=== PATIENT | female | born 1965 | race Caucasian/White ===

== ENCOUNTER → 2020-02-24 | Outpatient (CLI) | payer OTHER ==
[~2020-02-24] MED LIST: AMBIEN 10 MG TA10 MG PO; AMBIEN 5 MG TABL5 M1 PO; BACTROBAN CREAM30 GM TOP; BUPROPION XL150 MG PO; CORTIZONE-1028 GM; CYMBALTA60 MG; CYMBALTA60 MG PO; EUTHYROX100 MCG PO; FAMOTIDINE40 MG PO; GRALISE600 MG PO; IBUPROFEN 800800 M1 PO; KEFLEX500 MG PO; LUMIGAN2.5 M1 OP; MELADOX3 MG PO; NEURONTIN600 MG; NORCO 5-325 TA1 EACH PO; OMEPRAZOLE40 MG PO; ONDANSETRON HCL4 M2 PO; OXCARBAZEPINE300 MG PO; PERCOCET 5-3251 EACH PO; PREDNISONE 20 M20 MG PO; PROPRANOLOL 1010 M1 PO; PROTONIX 20 MG20 M1; PROTONIX40 M2 PO; PROZAC20 MG PO; SEROQUEL XR150 MG PO; SYNTHROID75 MCG PO; TOPIRAGEN25 MG PO; VISTARIL 25 MG25 M1; VITAMIN D1000 UNI1 PO; [UNRECOGNIZED DRUG - OTHER]
== END ==
LOC: M.LAB 11:23
PROVIDERS: ATTEND Surgery
DX: Z01.812 Encounter for preprocedural laboratory examination (principal); Z20.828 Contact with and (suspected) exposure to other viral communicable diseases

== ENCOUNTER → 2020-03-01 | Day surgery (SDC) | payer OTHER ==
[~2020-03-01] MED LIST changes: +OXYCODONE HCL 55 MG PO
--- NOTE | 2020-03-01 18:50 | OP ---
[address] [address] OPERATIVE REPORT Name: CHRISTINE DRUMMOND Room: [facility]#: [id number] Admission: 03/01/20 Attend Phys: Marielle Campo DO Discharge: Date of : 67 Report #: [id number] THIS REPORT FOR: cc: Hailey Lopez RN, Janene RN FNP ~ Marielle Campo DO DATE OF SERVICE: 03/01/2020 PREOPERATIVE DIAGNOSIS: Cholelithiasis. POSTOPERATIVE DIAGNOSIS: Cholelithiasis. FINDINGS: Large stone in the neck of the gallbladder. The liver appeared to be very friable. SURGEON: Marielle Campo DO COSURGEON: Olaf Al, PGY-1. CLERK CASHIER: ALEJANDRO Lynn. PROCEDURE PERFORMED: Laparoscopic cholecystectomy. ANESTHESIA:. General endotracheal with local and TAP's block. ESTIMATED BLOOD LOSS: 10 mL. DRAINS: None. SPECIMENS: Gallbladder. COMPLICATIONS: None. CONDITION: Stable. DISPOSITION: PACU to home. HISTORY OF PRESENT ILLNESS: The patient is a very pleasant 54-year-old female who presented to my office with complaint of intermittent bouts of right upper quadrant abdominal pain associated with nausea. On ultrasound, she was found to have a very large stone in the gallbladder. She was then consented for laparoscopic cholecystectomy. Risks discussed included bleeding, infection, pain, scar formation, injury to bowel, liver or bile duct, hernia at the incision sites, need for an open procedure and risks of general anesthesia. The patient understood these risks and [place] [address] OPERATIVE REPORT Name: CHRISTINE DRUMMOND Room: [facility]#: [id number] Admission: 03/01/20 Attend Phys: Marielle Campo DO Discharge: Date of : 67 Report #: [id number] DESCRIPTION OF PROCEDURE: The patient was brought to the operating room. She was laid supine on the operating room table. SCDs were placed to bilateral lower extremities. Ancef was given in the perioperative period. General endotracheal anesthesia was induced by Anesthesia without difficulty. TAP's blocks were then also provided by Anesthesia without issue. Abdomen was prepped and draped in standard sterile fashion. Timeout was performed to verify patient and procedure. A 10 mL of 0.5% Marcaine were injected in the infraumbilical area. Curvilinear incision was made with 11 blade. Cautery was used for hemostasis. S retractors were used to visualize the fascia. Fascia was grasped and elevated between 2 Kochers. Fascia was incised using cautery. Peritoneum was bluntly entered using a Lin clamp. Finger was introduced into the abdomen to assure that there were no jen-incisional adhesions, none were identified. Two stitches of 0 Vicryl placed on the fascia. Susy trocar was introduced and secured with 0 Vicryl stitches. Abdomen was insufflated. The patient was placed head up and tilted left side down. Camera was introduced and a brief anterior abdominal exploration was undertaken with no significant findings. Three 5 mm trocars were introduced, one in the subxiphoid area and two in the right upper quadrant, all under direct visualization. Gallbladder was grasped and elevated. There were few filmy adhesions between the omentum and the gallbladder. These were easily taken down with cautery. Peritoneum overlying the triangle of Calot was then incised using cautery. The fatty tissues were removed until the duct and artery were both easily identified. Both were circumferentially dissected free using a [place] dissector and tissues, posterior to the artery were removed to the liver plate. This then afforded the critical view. Duct and artery were both doubly clipped and ligated. Gallbladder was then removed from the liver bed utilizing cautery with some difficulty as the liver bed was very friable and tore quite easily. Gallbladder was placed within an EndoCatch bag. Liver bed was inspected. There were several areas of bleeding, which were easily controlled with cautery. Our Clips were inspected. They appeared to be intact. There was no bleeding or leakage noted from the area of the clips. Trocars were then removed under direct visualization. There was no bleeding noted from the peritoneum. Abdomen was completely desufflated. Susy trocar was removed and EndoCatch bag was removed after extending the fascial incision due to a very large stone in the gallbladder. Specimen was then handed off for permanent pathology. Kochers were placed on the fascia of the infraumbilical port. Previously placed 0 Vicryl stitches were removed and a 0 Vicryl stitch was placed in [id number]-wm-[id number] fashion with excellent approximation of the fascia. An additional 10 mL of 0.5% Marcaine were injected in the fascia. This wound was closed in a layered fashion using deep and superficial stitches of 3-0 Vicryl in inverted interrupted fashion. Skin wounds were all closed with 4-0 Monocryl. A total of 30 mL of 0.5% Marcaine were used to anesthetize the wounds. Wounds were then cleansed and covered with Dermabond. The patient was then allowed [place] [address] OPERATIVE REPORT Name: CHRISTINE DRUMMOND Room: [facility]#: [id number] Admission: 03/01/20 Attend Phys: Marielle Campo DO Discharge: Date of : 67 Report #: [id number] from anesthesia, was extubated and transported to the recovery room with no further difficulties. Counts were correct x 2 at the conclusion of the case. <ELECTRONICALLY SIGNED> By: Marielle Campo DO 03/01/20 1850 1641 1814Civory Campo DO /nt
--- NOTE | 2020-03-07 18:06 | PATH ---
[address] [address] PATHOLOGY RPT PROCEDURE Name: CHRISTINE MADDEN Room: [facility]#: [id number] Admission: 03/01/20 Date of : 67 Discharge: Report #: [id number] Path Case #: [id number] [facility] Accession Number: [id number] . 01 Material submitted: . gallbladder - GALLBLADDER WITH CONTENTS . 01 Clinical history: . GALLBLADDER WITH GALLSTONES CALCULUS OF GALL BLADDER W/O CHOLECYSTITIS W/O OBSTRUCTION . 02 Diagnosis: Gallbladder with contents: - Chronic cholecystitis and cholelithiasis with scant attached benign liver tissue. (SARAH/db; 03/07/2020) LBQ 03/07/2020 1534 Local . 02 Electronically signed: . Cody Romero MD, Pathologist NPI- [id number] . 01 Gross description: . Received in formalin labeled "Christine Madden, gallbladder with contents" is an intact cholecystectomy specimen measuring 7.8 x 3.6 x 3.2 cm. The serosa is peoples-green and smooth and the specimen is opened to reveal dark green velvety mucosa without polyps or masses. The average wall thickness is 0.1 cm. Within the gallbladder is an ovoid green-black calculus measuring 2.6 cm in greatest dimension. Web Marketing Coordinator sections of the fundus and body and the cystic duct margin are submitted in A1. ([facility]; 03/03/2020) [facility] 03/03/2020 1302 Local . 02 Pathologist provided ICD-10: K80.10 . 02 CPT . 876948 Specimen Comment: A courtesy copy of this report has been sent to [phone] Specimen Comment: Report sent to Performed at: [address], [place], [place] [id number] MD Nikunj Dempsey MD Phone: [phone] Performed at: 02 [facility] [address], [place], [place] [id number] MD Cody Romero MD Phone: [phone]
== END | disposition home or self-care (01) ==
LOC: M.SUR
PROVIDERS: ATTEND Surgery
DX: K80.10 Calculus of gallbladder with chronic cholecystitis without obstruction (principal); K76.89 Other specified diseases of liver; R10.9 Unspecified abdominal pain; K21.9 Gastro-esophageal reflux disease without esophagitis; F32.9 Major depressive disorder, single episode, unspecified; F41.9 Anxiety disorder, unspecified; H40.9 Unspecified glaucoma; Z98.890 Other specified postprocedural states; Z79.899 Other long term (current) drug therapy; Z85.850 Personal history of malignant neoplasm of thyroid

== ENCOUNTER → 2020-08-22 | Outpatient (CLI) | payer OTHER | LOC: M.RAD 14:27 | PROVIDERS: ATTEND Family Medicine | DX: Z12.31 Encounter for screening mammogram for malignant neoplasm of breast (principal); N64.89 Other specified disorders of breast ==